=== PATIENT | male | born 1950 | race Caucasian/White ===

== ENCOUNTER 2020-03-19 16:24 | Inpatient (IN) | payer OTHER, MEDICARE ==
[~2020-03-19] VITALS: Ht 185.4 cm; Wt 111.3 kg
[2020-03-19 17:22] LABS: BASOPHILS ABSOLUTE AUTO 0.06 K/mm3 (0.00-0.23); BASOPHILS PERCENT AUTO 1 % (0-2); EOSINOPHILS ABSOLUTE AUTO 0.16 K/mm3 (0.00-0.68); EOSINOPHILS PERCENT AUTO 2 % (0-6); Hematocrit 49.3 % (37.0-53.0); Hemoglobin 15.5 g/dL (13.5-17.5); IMMATURE GRAN ABSOLUTE AUTO 0.03 K/mm3 (0.00-0.10); IMMATURE GRAN PERCENT AUTO 0 % (0-1); LYMPHOCYTES ABSOLUTE AUTO 2.34 K/mm3 (0.84-5.20); LYMPHOCYTES PERCENT AUTO 24 % (21-46); MONOCYTES ABSOLUTE AUTO 0.75 K/mm3 (0.16-1.47); MONOCYTES PERCENT AUTO 8 % (4-13); Mean Corpuscular HGB 30.4 pg (26.0-34.0); Mean Corpuscular HGB Conc 31.4 g/dL (31.5-36.5); Mean Corpuscular Volume 97 fL (80-100); Mean Platelet Volume 9.9 fL (9.1-12.4); NEUTROPHILS ABSOLUTE AUTO 6.49 K/mm3 (1.96-9.15); NEUTROPHILS PERCENT AUTO 66 % (41-73); Platelet Count 172 K/mm3 (150-400); RDW Coefficient Variation 14.3 % (11.7-14.2); RDW Standard Deviation 51.4 fL (35.1-46.3); White Blood Cell Count 9.83 K/mm3 (4.00-11.30)
[2020-03-19 17:42] LABS: Alanine Aminotransfer (ALT/SGP 74 U/L (12-78); Albumin, Blood 3.7 g/dL (3.4-5.0); Alk Phos 65 U/L (50-136); Anion Gap 7 mmol/L (6-16); Aspartate Aminotrans (AST/SGOT 40 U/L (12-37); Bilirubin, Total 0.7 mg/dL (0.1-1.0); Blood Urea Nitrogen 23 mg/dL (8-24); Bun/Creatinine Ratio 22.8 (12.0-20.0); CO2, Blood 23 mmol/L (21-32); Calcium, Blood 8.9 mg/dL (8.5-10.1); Chloride, Blood 111 mmol/L (98-108); Creatinine, Blood 1.01 mg/dL (0.60-1.20); Globulin, Blood 3.7 g/dL (2.2-4.0); Glomerular Filtration Rate >60 (60-); Glucose, Blood 115 mg/dL (70-99); Potassium, Blood 4.5 mmol/L (3.5-5.5); Sodium, Blood 141 mmol/L (136-145); Total Protein, Blood 7.4 g/dL (6.4-8.2); Troponin I 0.018 ng/mL (0.000-0.040)
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
--- NOTE | 2020-03-20 06:04 | NUR ---
SHIFT SUMMARY PT A&O X4. INDEPENDENT IN RM. VSS. SPO2 > 92% ON RA. MONITOR SHOWS AFIB, HR 60's-110's. CARDIZEM GTT TITRATED OFF & TRANSITIONED TO PO CARDIZEM THIS SHIFT PER MD MARTIN ORDER. PT TOLERATING WELL. NURSE ORDER PLACED FOR SOCIAL SERVICE CONSULT FOR NEW PCP PER PT REQUEST D/T PT REPORT OF NO PCP. PALLIATIVE CARE CONSULT PLACED FOR PT POLST PER PT REQUEST ALSO. PT REPORTS WISHES FOR CPR BUT NO INTUBATION, STATING "I DON'T WANT TO BE ON A MACHINE." MD RODRIGUEZ NOTIFIED W/ NEW ORDERS FOR DNI. FURTHER AD/POLST TO BE DISCUSSED/COMPLETED.
--- NOTE | 2020-03-20 07:26 | NUR ---
ASSUMED CARE: PT RESTING IN BED, AFIB 60S-120S ON TELE. INDEPENDENT IN ROOM. NO ACUTE NEEDS AT THIS TIME.
--- NOTE | 2020-03-20 10:45 | NUR ---
DR MICHELE AND [facility]ART [facility] STAFF AT BEDSIDE TO PERFORM JANET. CLOT NOTED TO [facility] SO CARDIOVERSION WAS NOT PERFORMED. DR MICHELE STARTED PT ON METOPROLOL THIS AM AND STATES TO MONITOR PT WITH AMBULATION TO DETERMINE IF METOPROLOL GIVES GOOD ENOUGH RATE CONTROL. DR MICHELE CALLED HOSPITALIST TO UPDATE HER WELL
--- NOTE | 2020-03-20 13:37 | NUR ---
PT AMBULATED IN [place] AND TOOK A FEW LAPS AROUND THE UNIT. HR TOUCHED INTO 130S WITH ACTIVITY. CALL TO DR KEITH WHO STATED TO LET DR MICHELE KNOW. SPOKE WITH DR MICHELE WHO DID NOT WISH TO MAKE FURTHER CHANGES BUT STATES FOR DC TOMORROW.
--- NOTE | 2020-03-20 16:00 | NUR ---
PT'S BEDSIDE. THEY HAD QUESTIONS ABOUT ADVANCED DIRECTIVES. CALL TO PALLIATIVE CARE WHO CAME TO SEE PT AND DISCUSSED PT'S CHF STATUS WITH HIM WELL. PT DENIES FURTHER NEEDS AT THIS TIME.
--- NOTE | 2020-03-20 16:58 | NUR ---
Initial [facility] Care visit - Referral received today due to new cardiac dx of afib-RVR and heart failure being worked up. Also, Pt's RN contacted us and stated pt's was in visiting and would like to speak with someone about completing an advanced directive. I met with pt and at bedside. We had a long conversation and explanation time on advanced directives. They also had questions re: pt's new medications and what they understand so far about Krunal's dx. We reviewed some of his new medications, how they work, cardiac rehab when released by Dr to participate, diet, paced and gentle activity, daily weights, when to call their Dr with s/s, importance of close medical managment with PCP and electrical electronics technician. Pt and very eager for info and had good questions re: aftercare. They do not have a PCP and could use assist in getting a f/u appointment made for post hospitalization. CM had provided them with a form-new pt application for [employer] in [facility] where they live. 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 He had difficulty passing [employer] physicals annually due to HTN. He reports he has not had regular medical care for years and has not felt well for some time due to fatigue, activity intolerance and approx two weeks ago became extremely dyspnic even at rest and worsening activity tolerance. He reports 20 pound weight gain and attributed it to Covid restrictions and decreased activity. He reports quitting smoking 2 weeks ago due to SOB. We reviewed normal heart function and how untreated HTN, smoking, obesity, inactivity can be damaging to the heart muscle and function over time. Much time spent listening and encouraging pt to follow newly prescribed plan of care with medical management of his heart condition for the best outcomes, recovery and quality of life possible. We did discuss code status briefly and options r/t goals of care. Booklet "Hard Choices for [place] People" given for their review and to trigger questions for their new medical providers for advanced care planning help. Our office number provided so they could call with questions in the future. Pt and expressed appreciation for the visit and conversation. They were given enough POLST and AD forms for both of them and their son to complete per their request.
--- NOTE | 2020-03-20 18:03 | NUR ---
SHIFT SUMMARY: PT RESTING IN BED. HR IN 70S AT THIS TIME. DENIES CHEST PAIN. POSSIBLE DC IN AM AFTER DRS SEE PT AND REVIEWS HOW PT RESPONDS TO NEW MEDS FROM CARDIOLOGY. PALLIATIVE CARE REVIEWED PT'S DIAGNOSIS WITH HIM AND THIS AFTERNOON. NO ACUTE NEEDS OR CONCERNS AT THIS TIME
[2020-03-21 04:25] LABS: Albumin, Blood 3.5 g/dL (3.4-5.0); Anion Gap 5 mmol/L (6-16); Blood Urea Nitrogen 33 mg/dL (8-24); Bun/Creatinine Ratio 27.5 (12.0-20.0); CO2, Blood 29 mmol/L (21-32); Calcium, Blood 9.1 mg/dL (8.5-10.1); Chloride, Blood 107 mmol/L (98-108); Glomerular Filtration Rate >60 (60-); Glucose, Blood 118 mg/dL (70-99); Magnesium, Blood 2.4 mg/dL (1.6-2.4); Phosphorus, Blood 4.2 mg/dL (2.5-4.9); Potassium, Blood 4.3 mmol/L (3.5-5.5); Sodium, Blood 141 mmol/L (136-145)
--- NOTE | 2020-03-21 05:30 | NUR ---
SHIFT SUMMARY NO ACUTE CHANGES THIS SHIFT. VSS. PT A&OX4. SP02>92% ON RA. TELEMETRY READS AFIB, HR 80'S-130'S. PT INDEPENDENT IN ROOM, UP TO BATHROOM TO VOID. PT ABD TENDER UPON PALPATION, STATES IT HAS BEEN LIKE THAT FOR A FEW WEEKS. PT RESTING IN CHAIR PART OF THE NIGHT. PT STATES HE "FEELS ALOT BETTER, MIND CLEARER". STATES HE IS READY TO GO HOME. CALL LIGHT IN REACH. IWLL CONTINUE TO MONITOR.
--- NOTE | 2020-03-21 08:49 | NUR ---
Pt states that his headache is resolved after eating breakfast. Called screener lloyd on [employer], requested that his be the only visitor allowed today.
--- NOTE | 2020-03-21 10:19 | NUR ---
0930 Call to pt's Shala at her request. Updated her on pt's resolved headache after he had eaten breakfast and had 2 cups coffee. Also told her that [facility] lloyd was also requested not to let any visitors in except for the , since visitors are limited to 1 /day per patient. She expressed thanks for the update and phone call.
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
--- NOTE | 2020-03-21 15:01 | NUR ---
Two attempts to reach Dr. Soto by pager, no return phone call. Call then to Dr. Barboza at this time to update her on recent lab, pt vital signs and toleration of activity. She states that the pt can be discharged.
[2020-03-21] MEDS ORDERED: FURO40 PO (15:09)
[2020-03-21] MEDS ORDERED: LISI20 PO (15:10)
[2020-03-21] MEDS ORDERED: METO100ER PO (15:11)
[2020-03-21] MEDS ORDERED: XARELTO20 MG PO (15:12)
[2020-03-21] MEDS ORDERED: SPIR25 PO (15:12)
== END 2020-03-21 15:34 | disposition home or self-care (01) | DRG 308 ==
LOC: ER 16:24 → PCU 16:25
PROVIDERS: Internal Medicine; Physician Assistant; ADMIT Internal Medicine
DX: I48.91 Unspecified atrial fibrillation (principal); I50.21 Acute systolic (congestive) heart failure; I49.3 Ventricular premature depolarization; I11.0 Hypertensive heart disease with heart failure; E66.9 Obesity, unspecified; F17.210 Nicotine dependence, cigarettes, uncomplicated; R94.31 Abnormal electrocardiogram [ECG] [EKG]; I51.3 Intracardiac thrombosis, not elsewhere classified; I34.0 Nonrheumatic mitral (valve) insufficiency; Z88.5 Allergy status to narcotic agent; Z88.6 Allergy status to analgesic agent; Z68.32 Body mass index [BMI] 32.0-32.9, adult
CPT/HCPCS: 36415; 71045; 80053; 80069; 83735; 83880; 84443; 84484; 85025; 93005; 93010; 93312; 93325; 96365; 96366; 96375; 96376; 99285-25; J1940; J2250; J3010

== ENCOUNTER 2020-03-23 20:20 | Emergency (ER) | payer OTHER, MEDICARE ==
[~2020-03-23] VITALS: Ht 185.4 cm; Wt 111.6 kg
[~2020-03-23 20:20] MED LIST: FURO40 PO; LISI20 PO; METO100ER PO; SPIR25 PO; XARELTO20 MG PO
[2020-03-23 20:49] LABS: BASOPHILS ABSOLUTE AUTO 0.05 K/mm3 (0.00-0.23); BASOPHILS PERCENT AUTO 0 % (0-2); EOSINOPHILS ABSOLUTE AUTO 0.09 K/mm3 (0.00-0.68); EOSINOPHILS PERCENT AUTO 1 % (0-6); Hematocrit 49.1 % (37.0-53.0); Hemoglobin 15.7 g/dL (13.5-17.5); IMMATURE GRAN ABSOLUTE AUTO 0.03 K/mm3 (0.00-0.10); IMMATURE GRAN PERCENT AUTO 0 % (0-1); LYMPHOCYTES ABSOLUTE AUTO 2.04 K/mm3 (0.84-5.20); LYMPHOCYTES PERCENT AUTO 17 % (21-46); MONOCYTES ABSOLUTE AUTO 1.19 K/mm3 (0.16-1.47); MONOCYTES PERCENT AUTO 10 % (4-13); Mean Corpuscular HGB 30.4 pg (26.0-34.0); Mean Corpuscular Volume 95 fL (80-100); Mean Platelet Volume 9.9 fL (9.1-12.4); NEUTROPHILS ABSOLUTE AUTO 8.96 K/mm3 (1.96-9.15); NEUTROPHILS PERCENT AUTO 73 % (41-73); Platelet Count 198 K/mm3 (150-400); RDW Coefficient Variation 14.4 % (11.7-14.2); RDW Standard Deviation 49.7 fL (35.1-46.3); Red Blood Cell Count 5.17 M/mm3 (4.30-5.90); White Blood Cell Count 12.36 K/mm3 (4.00-11.30)
[2020-03-23 21:03] LABS: International Normalized Ratio 2.06; Prothrombin Time Results 21.2 Sec (9.7-11.5)
[2020-03-23 21:10] LABS: Albumin, Blood 3.4 g/dL (3.4-5.0); Albumin/Globulin Ratio 0.8 (0.8-1.8); Bilirubin, Total 0.9 mg/dL (0.1-1.0); Bun/Creatinine Ratio 24.1 (12.0-20.0); Calcium, Blood 9.2 mg/dL (8.5-10.1); Creatinine, Blood 1.7 mg/dL (0.60-1.20); Potassium, Blood 5.5 mmol/L (3.5-5.5); Total Protein, Blood 7.4 g/dL (6.4-8.2); Troponin I 0.026 ng/mL (0.000-0.040)
== END 2020-03-24 01:13 | disposition home or self-care (01) ==
LOC: ER 20:20
PROVIDERS: Emergency Medicine
DX: R10.30 Lower abdominal pain, unspecified (principal); R06.02 Shortness of breath; I10 Essential (primary) hypertension; I48.91 Unspecified atrial fibrillation; Z87.891 Personal history of nicotine dependence; Z79.01 Long term (current) use of anticoagulants; Z79.899 Other long term (current) drug therapy; Z88.5 Allergy status to narcotic agent; Z88.6 Allergy status to analgesic agent
CPT/HCPCS: 71046; 74177; 76705; 80053; 83880; 84484; 85025; 85610; 93005; 93010; 99284-25; Q9967

== ENCOUNTER 2020-04-15 05:48 | Day surgery (SDC) | payer OTHER, MEDICARE ==
[~2020-04-15] VITALS: Ht 185.4 cm; Wt 98.2 kg
--- NOTE | 2020-04-15 08:35 | NUR ---
PT IS DROWSY POST JANET/CARDIOVERSION; BUT CONVERSING APPROPRIATELY; DENIES PAIN POST PROCEDURE. MONITOR SR 60'S, B/P 104/67, AFEBRILE, SPO2 96% RA. SEE EHR FOR INTRA AND POST VS.
--- NOTE | 2020-04-15 09:30 | NUR ---
PT DRESSED SELF WITHOUT ISSUE, IV REMOVED-CANNULA INTACT.
--- NOTE | 2020-04-15 09:40 | NUR ---
PT RECEIVED DISCHARGE INSTRUCTIONS, MED LIST AND AFTER CARE INSTRUCTIONS; VERBALIZED GOOD UNDERSTANDING. PT'S ON WAY TO CONTROL CLERK FOOD AND BEVERAGE PT.
--- NOTE | 2020-04-15 10:00 | NUR ---
PT LEFT FACILITY VIA W/C, CONDITION STABLE.
== END 2020-04-15 16:22 | disposition home or self-care (01) ==
LOC: MHTC 05:48
DX: I48.91 Unspecified atrial fibrillation (principal); I11.0 Hypertensive heart disease with heart failure; I50.9 Heart failure, unspecified; I23.6 Thrombosis of atrium, auricular appendage, and ventricle as current complications following acute myocardial infarction; F17.210 Nicotine dependence, cigarettes, uncomplicated; E66.3 Overweight; R06.09 Other forms of dyspnea; Z79.01 Long term (current) use of anticoagulants; Z68.28 Body mass index [BMI] 28.0-28.9, adult
CPT/HCPCS: 92960; 93005; 93010; 93312; 93325; A9270; J2704; J7030

== ENCOUNTER 2020-05-14 07:51 | Day surgery (SDC) | payer OTHER, MEDICARE ==
[~2020-05-14] VITALS: Ht 185.4 cm; Wt 98.0 kg
--- NOTE | 2020-05-14 11:33 | NUR ---
PT AMB TO BTR OK, DRESSED, IV DC'D INTACT, TR BAND REMOVED, DRESSING/SPLINT PLACED TO R WRIST, WAITING OUTSIDE, DR MICHELE IN TO DISCUSS PLAN OF CARE WITH PT. PT CHOOSES TO DC BY AMBULATION. RECOVERY VS PLACED ON RHYTHM STRIP RECORD R/T [employer] DOWN THIS AM.
== END 2020-05-14 15:08 | disposition home or self-care (01) ==
LOC: MHTC 07:51
DX: I11.0 Hypertensive heart disease with heart failure (principal); I50.22 Chronic systolic (congestive) heart failure; I27.21 Secondary pulmonary arterial hypertension; I25.10 Atherosclerotic heart disease of native coronary artery without angina pectoris; I42.8 Other cardiomyopathies; I48.0 Paroxysmal atrial fibrillation; F17.200 Nicotine dependence, unspecified, uncomplicated; I34.0 Nonrheumatic mitral (valve) insufficiency; E66.3 Overweight; Z79.01 Long term (current) use of anticoagulants; Z88.6 Allergy status to analgesic agent; Z88.5 Allergy status to narcotic agent; Z68.28 Body mass index [BMI] 28.0-28.9, adult
CPT/HCPCS: 76937; 85347; 93460; 99152; C1769; C1894; J1644; J2250; J3010; J7030; J7050; Q9967